=== PATIENT | male | born 1945 | race Caucasian/White ===

== ENCOUNTER → 2024-02-05 18:27 | Outpatient (REF) | payer OTHER, SELFPAY | LOC: RAD 18:27 | PROVIDERS: ATTENDING PHYSICIAN Internal Medicine Critical Care Medicine; FAMILY PHYSICIAN Family Medicine | DX: J44.9 Chronic obstructive pulmonary disease, unspecified (principal) | CPT/HCPCS: 71046 ==

== ENCOUNTER → 2024-02-24 10:35 | Outpatient (REF) | payer OTHER, SELFPAY | LOC: HWRAD 10:35 | PROVIDERS: ATTENDING PHYSICIAN Internal Medicine Critical Care Medicine; FAMILY PHYSICIAN Family Medicine | DX: R91.1 Solitary pulmonary nodule (principal) | CPT/HCPCS: 71250 ==

== ENCOUNTER → 2024-04-01 18:14 | Outpatient (REF) | payer OTHER, SELFPAY | LOC: MRI 3T 18:14 | PROVIDERS: ATTENDING PHYSICIAN Surgery; FAMILY PHYSICIAN Family Medicine | DX: C61 Malignant neoplasm of prostate (principal) | CPT/HCPCS: 72197; A9575 ==

== ENCOUNTER → 2024-04-22 06:33 | Outpatient (REF) | payer OTHER, SELFPAY | LOC: MRI 3T 06:33 | PROVIDERS: ATTENDING PHYSICIAN Internal Medicine; FAMILY PHYSICIAN Family Medicine | DX: M48.062 Spinal stenosis, lumbar region with neurogenic claudication (principal) | CPT/HCPCS: 72148 ==

== ENCOUNTER → 2024-11-23 10:12 | Outpatient (REF) | payer OTHER, SELFPAY | LOC: RAD 10:12 | PROVIDERS: ATTENDING PHYSICIAN Physician Assistant Medical; FAMILY PHYSICIAN Family Medicine | DX: M79.604 Pain in right leg (principal); M79.89 Other specified soft tissue disorders | CPT/HCPCS: 93971 ==

== ENCOUNTER 2025-01-01 18:24 | Emergency (ER) | payer OTHER, SELFPAY ==
[2025-01-01 18:27] VITALS: BP 143/81
[2025-01-01 19:17] VITALS: BMI 27.7
--- NOTE | 2025-01-01 19:17 | ED.GENMED ---
History of Present Illness
General
Chief Complaint: Musculo-Skeletal Complaint
Source: patient, spouse and family
Exam Limitations: none
Time Seen by Provider: 01/01/25 19:03
History of Present Illness
History of Present Illness:
Patient tripped and fell trying to get an object out of a trunk. No syncope. Hit his face left arm left shoulder and anterior chest. Denies significant headache neck pain shortness of breath abdominal pain. Last tetanus is unknown. Able to bear
weight without difficulty. Patient is on Plavix and aspirin.
Past History
Past History
ED Past Medical History: CAD, HTN, Hypercholesterolemia, SD and Other (Sinus congestion.)
ED Past Surgical History: Cardiac (Stents X3)
Social History
Tobacco: Former smoker
Alcohol: Occasional
Drug: None
Personal:
Living: with family
Employment: Retired
Family History
Family History: Other (Noncontributory)
Review of Systems
Review of Systems
All Other Systems: Not applicable
Respiratory: Reports no symptoms
ABD/GI: Reports no symptoms
Neurological: Reports no symptoms
Phy Exam
Physical Exam
Physical Exam:
TRAUMA EXAM:
VITAL SIGNS: Vital signs reviewed, cooperative
DISTRESS: No active disease
EYES: Pupils reactive, no orbital trauma
NOSE: No deformity or epistaxis
FACE AND SCALP: No scalp trauma. Ecchymosis to the left upper lip. Slight ecchymosis to the left forehead
NECK: Supple nontender
BACK: Back nontender, pelvis stable to compression
RESPIRATORY: No distress, breath sounds normal, no tender chest wall
CARDIAC: No murmur, pulses equal and strong
ABDOMEN: Soft nontender bowel sounds normal
SKIN: Abrasion to the left knee and multiple superficial abrasions to the left forearm.
EXTREMITIES: Mild tenderness to the left forearm extending up to the elbow. Good range of motion.
NEUROLOGICAL: Alert, oriented, no motor deficits
PSYCH: Mood affect normal
Course
Orders/Labs/Results
Orders:
Orders
01/01/25 18:29
Ribs, Left 3 View W/PA Chest CR [CR Ribs-left 3 Vw W/pa Chest] Urgent
Comment:
Reason For Exam: fall
01/01/25 19:10
Tetanus/Diphth/Acelpertussis [Adacel] 0.5 ml IM .ONCE ONE
01/01/25 19:14
CT Head W/o Iv Contrast Urgent
Comment:
Reason For Exam: trauma
Forearm, Left 2 View [CR Forearm - Left 2 View] Urgent
Comment:
Reason For Exam: trauma
Vital Signs
Initial and Last Documented VS:
Initial Vital Signs
Temp Pulse Resp BP Pulse Ox
98.8 F 68 17 143/81 97
01/01/25 18:27 01/01/25 18:27 01/01/25 18:27 01/01/25 18:27 01/01/25 18:27
Last Documented Vital Signs
Temp Pulse Resp BP Pulse Ox
98.8 F 68 18 142/70 99
01/01/25 18:27 01/01/25 19:50 01/01/25 19:50 01/01/25 19:50 01/01/25 19:50
MDM/Problems Addressed
Differential Diagnosis Includes:
Patient clearly describing a trip and fall. No syncope. No significant head injury however patient is on Plavix and aspirin. No neck symptoms. Mild anterior chest wall tenderness however breath sounds are equal no crepitus. X-rays are
unremarkable. Abdomen is nontender. All other injuries are mostly abrasions and contusions. There is some more tenderness to the left forearm which will x-ray. Good range of motion of the shoulder. Able to abduct. No point tenderness. Left
knee with a very superficial abrasion. Do not feel these areas require radiologic testing.
*Radiology
Radiology exam reviewed: preliminary read by ED provider (Negative forearm. Negative rib series) and radiology read reviewed (. Negative forearm. Negative rib series. Negative head CT)
*Pulse Oximetry
SaO2: 97
Oxygen Mode of Delivery: Room air
Patient hypoxic: no
*Critical Care Note
Total Time (30-74mins, 75-104mins- exclusive of procedures): Not Applicable
Update Note
Update Note:
Workup unremarkable. Patient stable. Discharged to follow-up
ED Attending Note
-
Portions of this chart may have been created with voice recognition software.� Occasional wrong word or��sound alike� substitutions may have occurred due to the inherent limitations of voice recognition software.
Discharge Plan
Departure
Patient Disposition: Home (Routine Discharge)
Date of Disposition: 01/01/25
Time of Disposition: 19:54
Patient with high blood pressure during this ER visit?: Yes
Discharge Problem:
Fall, Blunt chest trauma, Minor head injury, Multiple contusion/abrasions
Instructions: Head injury in adults, Contusion (DC), Abrasions - ED (DC), BLOOD PRESSURE
Prescriptions:
No Action
atorvastatin [Lipitor] 10 MG tablet
10 mg PO HS
metoprolol succinate 100 MG tablet extended release 24 hr
100 mg PO DAILY
niacin 750 MG tablet extended release 24 hr
1,500 mg PO HS
isosorbide mononitrate 60 MG tablet extended release 24 hr
60 mg PO Daily
amlodipine-benazepril 1 CAPSULE capsule
1 cap PO HS
nitroglycerin 0.4 MG tablet, sublingual
0.4 mg sublingual PRN PRN (Reason: chest pain)
acetaminophen 325 MG tablet
650 mg PO Q6HPRN PRN (Reason: mild pain/ fever>100.5F) 0RF
clopidogrel [Plavix] 75 mg Tablet
75 mg PO DAILY
omeprazole [Prilosec] 10 mg Capsule,Delayed Release(Dr/Ec)
10 mg PO DAILY
aspirin 81 MG tablet,delayed release (DR/EC)
162 mg PO HS
donepezil 5 mg Tablet
5 mg PO DAILY
memantine 10 mg Tablet
10 mg PO BID
Referrals:
UNKNOWN - PT DOES,NOT KNOW [Family Provider] - Follow up in 2-3 days
Activity Restrictions/Additional Instructions:
Tylenol for pain
Follow-up closely with your primary physician
Interventions
Interventions:
*Risk Screen - Suicide Last Done: 01/01/25 18:28
*General Assessment Last Done: 01/01/25 18:28
*Neglect/Abuse Screening Last Done: 01/01/25 18:28
*ED- Fall Risk Assessment Last Done: 01/01/25 19:32
*ED COVID-19 Vaccine History Last Done: 01/01/25 18:28
*Nursing Disposition Last Done: 01/01/25 20:40
ED-Musculoskeletal Assessment Last Done: 01/01/25 19:35
Discharge Date and Time
Discharge Date/Time: 01/01/25 20:42
Print Language: MONGOLIAN
[2025-01-01] MEDS: ADACEL 0.5 ML IM (19:26)
[2025-01-01 19:50] VITALS: BP 142/70
== END 2025-01-01 20:42 | disposition home or self-care (01) ==
LOC: EMR 18:24
PROVIDERS: EMERGENCY PHYSICIAN Emergency Medicine
DX: S09.90XA Unspecified injury of head, initial encounter (principal); S29.9XXA Unspecified injury of thorax, initial encounter; S00.531A Contusion of lip, initial encounter; S00.83XA Contusion of other part of head, initial encounter; S80.212A Abrasion, left knee, initial encounter; S50.812A Abrasion of left forearm, initial encounter; Z23 Encounter for immunization; W01.0XXA Fall on same level from slipping, tripping and stumbling without subsequent striking against object, initial encounter; Y93.89 Activity, other specified; I25.10 Atherosclerotic heart disease of native coronary artery without angina pectoris; I10 Essential (primary) hypertension; E78.00 Pure hypercholesterolemia, unspecified; I25.2 Old myocardial infarction; Z95.5 Presence of coronary angioplasty implant and graft; Z87.891 Personal history of nicotine dependence; Z79.02 Long term (current) use of antithrombotics/antiplatelets; Z79.82 Long term (current) use of aspirin
CPT/HCPCS: 99284; 90471; 70450; 71101; 73090; 90715

== ENCOUNTER → 2025-02-08 11:39 | Outpatient (REF) | payer OTHER, SELFPAY | LOC: RAD 11:39 | PROVIDERS: ATTENDING PHYSICIAN Family Medicine | DX: M25.522 Pain in left elbow (principal) | CPT/HCPCS: 73080 ==

== ENCOUNTER → 2025-03-01 07:57 | Outpatient (REF) | payer OTHER, SELFPAY | LOC: MRI 3T 07:57 | PROVIDERS: ATTENDING PHYSICIAN Surgery; FAMILY PHYSICIAN Family Medicine | DX: C61 Malignant neoplasm of prostate (principal) | CPT/HCPCS: 72197; A9575 ==

== ENCOUNTER 2025-03-11 05:40 | Emergency (ER) | payer OTHER, SELFPAY ==
[2025-03-11 05:46] VITALS: BP 146/78
--- NOTE | 2025-03-11 06:31 | ED.GENMED ---
History of Present Illness
<Jennifer Alonso MD, Resident - Last Filed: 03/11/25 07:55>
General
Chief Complaint: Fall
Source: patient and significant other
Exam Limitations: none
Time Seen by Provider: 03/11/25 06:19
Nursing documentation reviewed up to this point in time: agreed with
History of Present Illness
History of Present Illness:
79yo M with a hx of CAD (MT at age 37, s/p stents), HTN, HLD, prostate ca who presents s/p fall 1 week ago with worsening R elbow pain & swelling.
Reports that 1 week ago he tripped over a curb. Denies LOC, headache, or lightheadedness/palpitations preceding fall. He fell onto his chin, R arm, R knee, R-sided trunk. No BAZAN following fall. Went home and has been taking 8hr tylenol x2 daily for
the last week for pain. Does not take NSAIDs. This am, he woke up with worsening pain and swelling in the R elbow. R elbow has also been warm. Minimal erythema. Denies fever/chills. ROM in R elbow is limited by pain. Also endorses pain in R-sided
ribs. Denies any pain/swelling in R knee, very minimal pain in R shoulder. 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
Of note, the pt also had a fall in Dec (again tripped over a curb, was moving boxes), went to PT, was found to have a fracture in the L arm. Has not been worked up for vision, nerve, or balance abnormalities. Takes aspirin & plavix.
Past History
<Jennifer Alonso MD, Resident - Last Filed: 03/11/25 07:55>
Past History
ED Past Medical History: CAD, HTN, Hypercholesterolemia, MT and Other (Sinus congestion.)
ED Past Surgical History: Cardiac (Stents X3) and Urological (prostate cancer)
Social History
Tobacco: Former smoker
Alcohol: Occasional
Drug: None
Personal:
Living: with family
Employment: Retired
Family History
Family History: Other (Noncontributory)
Review of Systems
<Jennifer Alonso MD, Resident - Last Filed: 03/11/25 07:55>
Review of Systems
Allergies reviewed?: Yes
All Other Systems: ROS reviewed and negative except as documented in HPI and ROS
Constitutional: Reports no symptoms
EENT: Reports no symptoms
Respiratory: Reports no symptoms
Cardiac: Reports no symptoms
ABD/GI: Reports no symptoms
: Reports no symptoms
Musculoskeletal: Reports joint pain and joint swelling
Neurological: Reports no symptoms
Psychiatric: Reports no symptoms
Phy Exam
<Jennifer Alonso MD, Resident - Last Filed: 03/11/25 07:55>
General Physical Exam
General Presentation: well appearing
General age: appears stated age
General Skin: warm and dry
General Mental: alert
General Hydration: appears well hydrated
Cardiovascular Exam
Cardiovascular Exam: regular rate/rhythm and no edema
Pulmonary Exam
Pulmonary Exam: no respiratory distress
Gastrointestinal Exam
Gastrointestinal Exam: non distended
Neurological Exam
Neurological Exam: alert and other (bilateral environmental services assistant strength full & symmetric; bilateral ankle flexion/extension strength full & symmetric )
Musculoskeletal Exam
Musculoskeletal Exam: joint swelling (R elbow ) and other (R elbow passive & active flexion and extension limited by pain; R elbow with edema & warmth compared to L, not erythematous; no tenderness to palpation over bony prominences in R elbow,
knee, shoulder; R shoulder & knee ROM unlimited by pain & joints w/o swelling; ttp R lower medial ribs)
Course
<Jennifer Alonso MD, Resident - Last Filed: 03/11/25 07:55>
Orders/Labs/Results
Orders:
Orders
03/11/25 07:04
Elbow, 2 View, Right [CR Elbow - Right Min 2 View] Urgent
Comment:
Reason For Exam: R elbow swelling, pain s/p fall
03/11/25 07:46
Jesus Manuel Wrap Right-Treatment ONCE
Comment: R elbow
Vital Signs
Initial and Last Documented VS:
Initial Vital Signs
Temp Pulse Resp BP Pulse Ox
98.5 F 80 16 146/78 98
03/11/25 05:46 03/11/25 05:46 03/11/25 05:46 03/11/25 05:46 03/11/25 05:46
Last Documented Vital Signs
Temp Pulse Resp BP Pulse Ox
98.5 F 80 16 146/78 98
03/11/25 05:46 03/11/25 05:46 03/11/25 05:46 03/11/25 05:46 03/11/25 06:45
nick;Minh Rodriguez, - Last Filed: 03/11/25 14:19>
Orders/Labs/Results
Orders:
Orders
03/11/25 07:04
Elbow, 2 View, Right [CR Elbow - Right Min 2 View] Urgent
Comment:
Reason For Exam: R elbow swelling, pain s/p fall
03/11/25 07:46
Jesus Manuel Wrap Right-Treatment ONCE
Comment: R elbow
Vital Signs
Initial and Last Documented VS:
Initial Vital Signs
Temp Pulse Resp BP Pulse Ox
98.5 F 80 16 146/78 98
03/11/25 05:46 03/11/25 05:46 03/11/25 05:46 03/11/25 05:46 03/11/25 05:46
Last Documented Vital Signs
Temp Pulse Resp BP Pulse Ox
98.5 F 80 16 146/78 98
03/11/25 05:46 03/11/25 05:46 03/11/25 05:46 03/11/25 05:46 03/11/25 06:45
<Jennifer Alonso MD, Resident - Last Filed: 03/11/25 07:55>
MDM/Problems Addressed
Differential Diagnosis Includes:
Ddx:
R-sided rib fracture
R elbow ligamentous sprain vs. tear
R elbow fracture
R/o septic joint R elbow (no significant erythema, no f/c, no TTP over joint, no significant fluid to tap)
R/o R elbow hemarthrosis or bursitis
MDM/Problems Addressed:
- XR R elbow
- Tylenol (pt avoids NSAIDs)
- Defer CXR as no c/f PTX & would not change conservative mgmt
<Jennifer Alonso MD, Resident - Last Filed: 03/11/25 07:55>
*Pulse Oximetry
SaO2: 98
Oxygen Mode of Delivery: Room air
Patient hypoxic: no
*Critical Care Note
Total Time (30-74mins, 75-104mins- exclusive of procedures): Not Applicable
<Jennifer Alonso MD, Resident - Last Filed: 03/11/25 07:55>
Update Note
Update Note:
XR R elbow without fracture or bony abnormality
AVSS
Plan to have pt f/u with orthopedics if sx don't improve over the coming days; pt may take 1-2 NSAIDs if pain severe, otherwise continue tylenol & will apply jesus manuel bandage for compression in ED prior to discharge.
ED Attending Note
<Jennifer Alonso MD, Resident - Last Filed: 03/11/25 07:55>
-
Portions of this chart may have been created with voice recognition software.� Occasional wrong word or��sound alike� substitutions may have occurred due to the inherent limitations of voice recognition software.
<Minh Rodriguez DO - Last Filed: 03/11/25 14:19>
ED Attending Note
Patient seen and examined by attending physician: Yes
I performed a history and physical exam of patient and discussed management with resident, I reviewed resident's note and agree with documented findings and plan of care.: Yes
ED Attending Note:
I agree with Jennifer's note.
79-year-old male presents with right elbow pain that has been present since a fall about a week ago. Patient tripped over a curb landing on his right side. He had some pain in his right knee and pain in the right lateral thorax as well which is
less significant. He denies any shortness of breath. He has been taking Tylenol for pain. Patient concerned because the right elbow pain is not getting any better and it continues to hurt with movement.
General: Awake, Alert, Oriented X3. No acute distress.
Vitals: unremarkable
Head: Atraumatic
Eyes: Pupils equal, EOMI
Throat: Airway intact, no exudates
Neck: Trachea midline
Chest: Mild tenderness palpation over the right lower thorax primarily over the costochondral junction region
Lungs: Clear and equal b/l
Neuro: Nonfocal
Skin: Warm, dry, no rash
Extremities: pulses equal b/l, no edema. Some tenderness to palpation bilateral epicondyles, radial head.
Will obtain x-ray of the elbow to exclude radial head fracture. Suspect more of a contusion/joint inflammation from his recent fall. No suspicion clinically for
Discharge Plan
Departure
Patient Disposition: Home (Routine Discharge)
Date of Disposition: 03/11/25
Time of Disposition: 07:51
Patient with high blood pressure during this ER visit?: No
Condition: Good
Covid-19: Not Applicable
Discharge Problem:
Elbow pain, right
Prescriptions:
No Action
atorvastatin [Lipitor] 10 MG tablet
10 mg PO HS
metoprolol succinate 100 MG tablet extended release 24 hr
100 mg PO DAILY
niacin 750 MG tablet extended release 24 hr
1,500 mg PO HS
isosorbide mononitrate 60 MG tablet extended release 24 hr
60 mg PO Daily
amlodipine-benazepril 1 CAPSULE capsule
1 cap PO HS
nitroglycerin 0.4 MG tablet, sublingual
0.4 mg sublingual PRN PRN (Reason: chest pain)
acetaminophen 325 MG tablet
650 mg PO Q6HPRN PRN (Reason: mild pain/ fever>100.5F) 0RF
clopidogrel [Plavix] 75 mg Tablet
75 mg PO DAILY
omeprazole [Prilosec] 10 mg Capsule,Delayed Release(Dr/Ec)
10 mg PO DAILY
aspirin 81 MG tablet,delayed release (DR/EC)
162 mg PO HS
donepezil 5 mg Tablet
5 mg PO DAILY
memantine 10 mg Tablet
10 mg PO BID
Referrals:
Gomez Owen MD [Active, Orthopedics] - As needed
Referral Note: if ongoing R elbow pain and swelling
UNKNOWN,NO INTERVIEW [Unknown Provider]
Stand Alone Forms: Return to Work
Activity Restrictions/Additional Instructions:
You were seen in the ED today for R elbow pain and swelling after falling 1 week ago. Xrays showed no fracture to the bones in the R elbow. We applied an jesus manuel bandage wrap in the ED and are providing a referral for an dispute specialist, who you
can see if your pain does not improve. Continue taking tylenol as needed and icing the elbow.
Return to the ED with any chest pain, trouble breathing, or fever/chills with worsening redness or swelling of elbow.
Interventions
Interventions:
*Risk Screen - Suicide Last Done: 03/11/25 05:46
*General Assessment Last Done: 03/11/25 05:46
*Neglect/Abuse Screening Last Done: 03/11/25 05:46
*ED- Fall Risk Assessment Last Done: 03/11/25 06:00
*ED COVID-19 Vaccine History Last Done: 03/11/25 06:00
*ED Influenza Vaccine History Last Done: 03/11/25 06:00
*Nursing Disposition Last Done: 03/11/25 08:13
ED-Musculoskeletal Assessment Last Done: 03/11/25 06:00
ED- Neurological Assessment Last Done: 03/11/25 06:00
ED-Skin Assessment Last Done: 03/11/25 06:00
Discharge Date and Time
Discharge Date/Time: 03/11/25 08:14
Print Language: [place] CITIZ[place]
== END 2025-03-11 08:14 | disposition home or self-care (01) ==
LOC: EMR 05:40
PROVIDERS: EMERGENCY PHYSICIAN Emergency Medicine; FAMILY PHYSICIAN Family Medicine
DX: M25.521 Pain in right elbow (principal); I25.10 Atherosclerotic heart disease of native coronary artery without angina pectoris; I10 Essential (primary) hypertension; E78.00 Pure hypercholesterolemia, unspecified; I25.2 Old myocardial infarction; Z79.82 Long term (current) use of aspirin; Z79.02 Long term (current) use of antithrombotics/antiplatelets; Z95.5 Presence of coronary angioplasty implant and graft; Z87.891 Personal history of nicotine dependence; W01.0XXA Fall on same level from slipping, tripping and stumbling without subsequent striking against object, initial encounter; Y92.480 Sidewalk as the place of occurrence of the external cause
CPT/HCPCS: 99283; 73070